=== PATIENT | female | born 1980 | race Caucasian/White ===

== ENCOUNTER → 2017-05-28 | Outpatient (CLI) | payer OTHER ==
--- NOTE | 2017-05-29 07:18 | US ---
EXAMINATION TYPE: US thyroid st tissue head/neck DATE OF EXAM: 05/28/2017 COMPARISON: US 01/04/2015 CLINICAL HISTORY: Thyromegaly E01.0. Patient complains of skin thickness at midline neck. GLAND SIZE: Right Lobe: 4.4 x 1.6 x 1.0 cm Overall Parenchyma: homogenous Left Lobe: 5.1 x 1.6 x 1.3 cm Overall Parenchyma: homogeneous Isthmus Thickness: 0.3 cm NODULES RIGHT: # of nodules measured on right: 1 1. 0.4 X 0.4 x 0.3 cm hypoechoic cystic nodule at the lower pole with well-defined margins. This n odule is wider than tall and shows no intranodular vascularity. Prior size: none previously seen LEFT: # of nodules measured on left: 0 ISTHMUS: # of nodules measured in the isthmus: 0 Bilateral neck scanned, no evidence of lymphadenopathy. IMPRESSION: Single subcentimeter right thyroid nodule measuring only 4 mm and of low suspicion. Prominent size of the thyroid remains as seen on the prior exam. No sonographic findings to correspond to the patient' s skin thickening at the midline.
== END ==
LOC: RADUSWWP 16:11
PROVIDERS: ATTEND Internal Medicine
DX: E04.1 Nontoxic single thyroid nodule (principal)
CPT/HCPCS: 76536

== ENCOUNTER → 2018-07-18 | Outpatient (CLI) | payer OTHER ==
--- NOTE | 2018-07-18 13:27 | US ---
EXAMINATION TYPE: US thyroid st tissue head/neck DATE OF EXAM: 07/18/2018 COMPARISON: NONE CLINICAL HISTORY: E04.1 Thyroid Nodule. follow up exam GLAND SIZE: Right Lobe: 4.6 x 1.3 x 1.4 cm Overall Parenchyma: homogenous Left Lobe: 6.4 x 1.3 x 1.6 cm Overall Parenchyma: homogeneous Isthmus Thickness: 0.3 cm NODULES RIGHT: # of nodules measured on right: 1 1. 0.5 X 0.3 x 0.4 cm cystic nodule at the lower pole with well-defined margins. This nodule is wi meredith than tall and shows no intranodular vascularity. Prior size: 0.4 x 0.4 x 0.3 cm LEFT: # of nodules measured on left: 0 ISTHMUS: # of nodules measured in the isthmus: 0 Bilateral neck scanned, no evidence of lymphadenopathy. IMPRESSION: 1. Stable Subcentimeter nodule right lobe thyroid.
[2018-07-18 14:45] LABS: T4, Free (Free Thyroxine) 0.96 ng/dL (0.78-2.19)
[2018-07-18 20:33] LABS: Hemoglobin A1C 5.3 % (4.0-6.0)
== END | disposition home or self-care (01) ==
LOC: RADUSWWP 13:00
PROVIDERS: ATTEND Internal Medicine Endocrinology, Diabetes & Metabolism
DX: E04.1 Nontoxic single thyroid nodule (principal); E16.2 Hypoglycemia, unspecified; Z83.3 Family history of diabetes mellitus
CPT/HCPCS: 76536; 83036; 84439; 84443; 84480

== ENCOUNTER → 2019-02-06 | Outpatient (CLI) | payer OTHER ==
--- NOTE | 2019-02-06 12:17 | MM ---
Reason for exam: screening (asymptomatic). History: Took hormonal contraceptives beginning at age 16. Physical Findings: Nurse did not find any significant physical abnormalities on exam. MG 3D Screening Mammo W/Cad Bilateral CC and MLO view(s) were taken. There are scattered fibroglandular densities. Finding: There are skin calcifications in the right breast. There is no discrete abnormality. These results were verbally communicated with the patient and result sheet given to the patient on 02/06/19. ASSESSMENT: Benign, BI-RAD 2 RECOMMENDATION: Routine screening mammogram of both breasts at age 41.
== END | disposition home or self-care (01) ==
LOC: RADMAMWWP 11:05
PROVIDERS: ATTEND Obstetrics & Gynecology Obstetrics
DX: Z12.31 Encounter for screening mammogram for malignant neoplasm of breast (principal)
CPT/HCPCS: 77063; 77067

== ENCOUNTER → 2019-05-01 | Outpatient (CLI) | payer OTHER ==
--- NOTE | 2019-05-01 11:34 | XR ---
EXAMINATION TYPE: XR lumbosacral spine min 4V DATE OF EXAM: 05/01/2019 CLINICAL HISTORY: Right-sided low back pain after strain injury TECHNIQUE: Frontal, lateral, and oblique images of the lumbar spine are obtained. COMPARISON: None FINDINGS: There are 5 lumbar type vertebral bodies identified. The lumbar spine shows satisfactory alignment without evidence of acute fracture or dislocation. Vertebral body heights and disk space he ights are within normal limits. The oblique images appear within normal limits. The overlying soft tissue appears unremarkable. Mild degenerative changes at the lower lumbar spine are displayed is fa cet arthropathy and intervertebral disc space narrowing at L5-S1. IMPRESSION: No acute fracture or dislocation is seen in the lumbar spine. 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
== END | disposition home or self-care (01) ==
LOC: RADXRYALE 10:52
PROVIDERS: ATTEND Internal Medicine
DX: M51.36 Other intervertebral disc degeneration, lumbar region (principal); M51.37 Other intervertebral disc degeneration, lumbosacral region
CPT/HCPCS: 72110

== ENCOUNTER 2019-05-02 14:41 | Emergency (ER) | payer OTHER ==
[2019-05-02 15:16] VITALS: BP 128/78; PULSE 83; RESP 16; TEMP 99
[2019-05-02] MEDS ORDERED: KETOROLAC 60 MG/2 ML VIAL IM STA (15:33)
[2019-05-02] MEDS ORDERED: predniSONE 50 MG TAB PO STA (15:33)
[2019-05-02] MEDS ORDERED: CYCLOBENZAPRINE 10MG STARTER 3 TAB BTL PO STA (15:33)
--- NOTE | 2019-05-02 15:59 | ED ---
General Adult HPI - General Chief complaint: Neck Pain/Injury Stated complaint: Back injury Time Seen by Provider: 05/02/19 15:18 Source: patient, RN notes reviewed, old records reviewed Mode of arrival: wheelchair Limitations: physical limitation - History of Present Illness Initial comments: 38-year-old female patient presents to ED for chief complaint of lumbar back strain. Patient reports that she was exercising at the gym, doing seated Consuelo, back exercises, the next day she reports that she has number spine tightness. Patient also is that she has some waxing and waning paresthesias. Denies any loss of bowel or bladder control. Denies new saddle anesthesia. Denies any lower extremity weakness. Denies any recent falls or trauma. Denies that she can be . Denies other complaints. Systemic: Pt denies fatigue, fever/chills, rash. Pt denies weakness, night sweats, weight loss. Neuro: Pt denies headache, visual disturbances, syncope or pre-syncope. HEENT: Pt denies ocular discharge or irritation, otalgia, rhinorrhea, pharyngitis or notable lymphadenopathy. Cardiopulmonary: Pt denies chest pain, SOB, heart palpitations, dyspnea on exertion. Abdominal/GI: Pt denies abdominal pain, n/v/d. : Pt denies dysuria, burning w/ urination, frequency/urgency. Denies new onset urinary or bowel incontinence. MSK: Pt denies myalgia, loss of strength or function in extremities. Neuro: Pt denies new onset weakness, paresthesias. - Related Data Home Medications Medication Instructions Recorded Confirmed Albuterol Inhaler [Ventolin Hfa 1 - 2 puff INHALATION Q6HR PRN 08/17/15 08/17/15 Inhaler] Albuterol Nebulized [Ventolin 2.5 mg INHALATION Q4H 08/17/15 08/17/15 Nebulized] Loratadine [Claritin] 10 mg PO DAILY 08/17/15 08/17/15 Norgestimate-Ethinyl Estradiol 1 tab PO DAILY 08/17/15 08/17/15 [Ortho Tri-Cyclen 28 Tablet] busPIRone HCL [Buspar] 15 mg PO DAILY 08/17/15 08/17/15 Previous Rx's Medication Instructions Recorded Cyclobenzaprine [Flexeril] 1 - 2 tab PO TID PRN #20 tablet 05/02/19 predniSONE 50 mg PO DAILY #4 tab 05/02/19 Allergies Allergy/AdvReac Type Severity Reaction Status Date / Time No Known Allergies Allergy Verified 05/02/19 15:16 Review of Systems ROS Statement: Those systems with pertinent positive or pertinent negative responses have been documented in the HPI. ROS Other: All systems not noted in ROS Statement are negative. Past Medical History Past Medical History: Asthma History of Any Multi-Drug Resistant Organisms: None Reported Past Surgical History: Adenoidectomy, Section, Tonsillectomy Past Psychological History: Anxiety Smoking Status: Never smoker Past Alcohol Use History: None Reported Past Drug Use History: None Reported General Exam - General Exam Comments Initial Comments: Constitutional: NAD, AOX3, Pt has pleasant affect. HEENT: NC/AT, trachea midline, neck supple, no lymphadenopathy. Posterior pharynx non erythematous, without exudates. External ears appear normal, without discharge. Mucous membranes moist. Eyes PERRLA, EOM intact. There is no scleral icterus. No pallor noted. Cardiopulmonary: RRR, no murmurs, rubs or gallops, no JVD noted. Lungs CTAB in anterior and posterior miguel. No peripheral edema. Abdominal exam: Abdomen soft and non-distended. Abdomen non-tender to palpation in all 4 quadrants. Bowel sounds active in LLQ. No hepatosplenomegaly. No ecchymosis Neuro: CN II-XII intact. No nuchal rigidity. No raccon eyes, no portillo sign, no hemotympanum. No cervical spinal tenderness. MSK: 5 out of 5 strength psoas quadriceps muscles. Heel to toe walking intact. Sensation intact lower extremity is. Distal pulses intact and equal. Right straight leg raise positive. Left straight leg raise negative. No posterior calf tenderness bilaterally, homans sign negative bilaterally. Posterior tibialis and radial pulse +2 bilaterally. Sensation intact in upper and lower ex tremities. Full active ROM in upper and lower extremities, 5/5 stregnth. Limitations: physical limitation Course Vital Signs 05/02/19 15:14 Temperature 99.0 F Pulse Rate 83 Respiratory 16 Rate Blood Pressure 128/78 O2 Sat by Pulse 100 Oximetry Medical Decision Making - Medical Decision Making 38-year-old female patient presents to ED for chief complaint of low back strain after exercising. Denies any red flag symptoms. Patient will signs stable, afebrile. Physical exam consistent with low back strain with radiculopathy. Outpatient plain films displayed multilevel degenerative changes. Patient will be treated with muscle relaxers, steroids, anti-inflammatories. Patient to follow up with primary care provider Saturday. Patient returned here patient worsens. Case discussed with Dr. Alcantara. Disposition Clinical Impression: Lumbar back sprain Disposition: HOME SELF-CARE Condition: Stable Instructions (If sedation given, give patient instructions): Low Back Strain (ED) Additional Instructions: Patient to adhere to previously discussed treatment plan and will take medication(s) as directed. Patient to follow up with PCP in 1-2 days. Patient to return to ED if symptoms do not improve. Take medications as directed. Follow up with primary care provider Saturday. Return to ER if condition worsens. Prescriptions: Cyclobenzaprine [Flexeril] 1 - 2 tab PO TID PRN #20 tablet PRN Reason: muscle spasm predniSONE 50 mg PO DAILY #4 tab Is patient prescribed a controlled substance at d/c from ED?: No Referrals: Leticia Cheema MD [Primary Care Provider] - 1-2 days
== END 2019-05-02 16:19 | disposition home or self-care (01) ==
LOC: EC 14:41
DX: S33.5XXA Sprain of ligaments of lumbar spine, initial encounter (principal); J45.909 Unspecified asthma, uncomplicated; F41.9 Anxiety disorder, unspecified; Z79.899 Other long term (current) drug therapy; X58.XXXA Exposure to other specified factors, initial encounter; Y92.39 Other specified sports and athletic area as the place of occurrence of the external cause
CPT/HCPCS: 99283; 96372; J1885; J7512

== ENCOUNTER → 2019-08-31 | Outpatient (CLI) | payer OTHER ==
[2019-08-31 23:17] LABS: T4, Free (Free Thyroxine) 1.36 ng/dL (0.78-2.19)
--- NOTE | 2019-09-01 08:25 | US ---
EXAMINATION TYPE: US thyroid st tissue head/neck DATE OF EXAM: 08/31/2019 COMPARISON: US CLINICAL HISTORY: E04.1 Nontoxic single thyroid nodule. Nontoxic single thyroid nodule. GLAND SIZE: Right Lobe: 5.3 x 1.7 x 1.6 cm Overall Parenchyma: homogenous Left Lobe: 5.5 x 1.6 x 1.4 cm Overall Parenchyma: homogeneous Isthmus Thickness: 0.27 cm NODULES RIGHT: # of nodules measured on right: 1 1. 0.6 X 0.4 x 0.3 cm complex nodule at the lower pole with well-defined margins. This nodule is w ider than tall and shows no intranodular vascularity. Nodule appears to be mostly anechoic with small hyperechoic component. Prior size: 0.5 x 0.3 x 0.4 cm LEFT: # of nodules measured on left: 1 1. 0.4 X 0.3 x 0.3 cm complex nodule at the lower pole with poorly defined margins. This nodule is as wide as it is tall and shows no intranodular vascularity. Prior size: no prior. ISTHMUS: # of nodules measured in the isthmus: 0 Bilateral neck scanned, no evidence of lymphadenopathy. IMPRESSION: 1. Thyroidomegaly. 2. Thyroid nodularity as discussed above is nonspecific.
== END | disposition home or self-care (01) ==
LOC: RADUSMAIN 16:52
PROVIDERS: ATTEND Internal Medicine Endocrinology, Diabetes & Metabolism
DX: E04.1 Nontoxic single thyroid nodule (principal)
CPT/HCPCS: 76536; 84439; 84443

== ENCOUNTER 2022-04-10 11:02 | Emergency (ER) | payer OTHER ==
--- NOTE | 2022-04-10 13:46 | ED ---
General Adult HPI - General Chief complaint: Abdominal Pain Stated complaint: abd pain Time Seen by Provider: 04/10/22 13:30 Source: patient Mode of arrival: ambulatory Limitations: no limitations - History of Present Illness Initial comments: Dictation was produced using [employer] dictation software. please excuse any grammatical, word or spelling errors. Chief Complaint: 41-year-old female presents to the emergency department for abd ominal pain History of Present Illness: 41-year-old female she has past medical history of multiple C-sections. She states over the last week she's been having worsening abdominal pain she states it's in the midline infraumbilical area slightly to the right. Patient denies any fever or constitutional symptoms. No diarrhea. No vomiting but she has had some bouts of nausea. Patient has any history of appendectomy. The ROS documented in this emergency department record has been reviewed and confirmed by me. Those systems with pertinent positive or negative responses have been documented in the HPI. All other systems are other negative and/or noncontributory. PHYSICAL EXAM: General Impression: Alert and oriented x3, not in acute distress HEENT: Normocephalic atraumatic, extra-ocular movements intact, pupils equal and reactive to light bilaterally, mucous membranes moist. Cardiovascular: Heart regular rate and rhythm Chest: Able to complete full sentences, no retractions, no tachypnea Abdomen: abdomen soft, tenderness to palpation at McBurney's point, non- distended, no organomegaly Musculoskeletal: Pulses present and equal in all extremities, no peripheral edema Motor: no focal deficits noted Neurological: CN II-XII grossly intact, no focal motor or sensory deficits noted Skin: Intact with no visualized rashes Psych: Normal affect and mood ED course: 41-year-old female presents emergency Department with infraumbilical abdominal pain. Vital Signs upon arrival are within acceptable limits. Lavatory evaluation obtained. CBC, metabolic panel is unremarkable. Urinalysis is negative. Computed tomography scan of abdomen and pelvis shows no acute processes. Patient reevaluated bedside found to be stable medical condition. There is appear to be a follicular cyst on the left ovary. At this point is unclear what is causing patient's symptoms. She does not however have any high- risk features. She is well-appearing at bedside and amenable for discharge. She given by mouth analgesics discharge. - Related Data Home Medications Medication Instructions Recorded Confirmed Albuterol Inhaler [Ventolin Hfa 2 puff INHALATION RT-Q6H PRN 08/17/15 04/10/22 Inhaler] Albuterol Nebulized [Ventolin 2.5 mg INHALATION RT-TID PRN 08/17/15 04/10/22 Nebulized] Loratadine [Claritin] 10 mg PO W/LUNCH 08/17/15 04/10/22 busPIRone HCL [Buspar] 15 mg PO DAILY PRN 08/17/15 04/10/22 Acetaminophen Tab [Tylenol Tab] 1,000 mg PO Q6HR PRN 04/10/22 04/10/22 Ascorbic Acid [Vitamin C] 1,500 mg PO DAILY 04/10/22 04/10/22 Aspirin EC [Ecotrin Low Dose] 81 mg PO HS 04/10/22 04/10/22 Cholecalciferol [Vitamin D3 (25 50 mcg PO BID 04/10/22 04/10/22 Mcg = 1000 Iu)] EPINEPHrine (Auto Inject) [Epipen] 0.3 mg IM ONCE PRN 04/10/22 04/10/22 Elderberry Gummy 1 cap PO HS 04/10/22 04/10/22 Fluticasone Nasal [place] [Flonase 1 spray EA NOSTRIL DAILY PRN 04/10/22 04/10/22 Nasal [place]] Fluticasone Propionate 110 Mcg 1 puff INHALATION RT-BID PRN 04/10/22 04/10/22 [Flovent 110 Mcg Inhaler] Hydrocortisone Cream 1 applic TOPICAL BID PRN 04/10/22 04/10/22 [Hydrocortisone 2.5% Cream] Ibuprofen [Motrin Ib] 800 mg PO Q8H PRN 04/10/22 04/10/22 Montelukast [Singulair] 10 mg PO HS 04/10/22 04/10/22 Multivit with Calcium,Iron,Min 1 tab PO DAILY 04/10/22 04/10/22 [Women's Multivitamin] Omeprazole [PriLOSEC] 20 mg PO HS 04/10/22 04/10/22 Triamcinolone 0.1% Cream [Kenalog 1 applicatio TOPICAL BID PRN 04/10/22 04/10/22 0.1% Cream] Zinc Gluconate [Zinc] 50 mg PO DAILY 04/10/22 04/10/22 diphenhydrAMINE HCL [Benadryl] 25 mg PO TID PRN 04/10/22 04/10/22 lisinopriL [Zestril] 5 mg PO DAILY 04/10/22 04/10/22 Previous Rx's Medication Instructions Recorded HYDROcodone/APAP 5-325MG [[place] 1 tab PO Q6HR PRN 3 Days #12 tab 04/10/22 5-325] Allergies Allergy/AdvReac Type Severity Reaction Status Date / Time cephalexin [From Keflex] Allergy Rash/Hives Verified 04/10/22 15:46 Review of Systems ROS Statement: Those systems with pertinent positive or pertinent negative responses have been documented in the HPI. ROS Other: All systems not noted in ROS Statement are negative. Past Medical History Past Medical History: Asthma History of Any Multi-Drug Resistant Organisms: None Reported Past Surgical History: Adenoidectomy, Section, Tonsillectomy Past Psychological History: Anxiety Smoking Status: Never smoker Past Alcohol Use History: None Reported Past Drug Use History: None Reported General Exam Limitations: no limitations Course Vital Signs 04/10/22 04/10/22 11:37 15:13 Temperature 96.8 F L Pulse Rate 112 H 98 Respiratory 22 18 Rate Blood Pressure 161/77 124/84 O2 Sat by Pulse 96 98 Oximetry Medical Decision Making - Lab Data Result diagrams: 04/10/22 13:49 04/10/22 13:49 Lab Results 04/10/22 04/10/22 04/10/22 Range/Units 13:49 13:49 13:49 WBC 10.3 (3.8-10.6) k/uL RBC 4.53 (3.80-5.40) m/uL Hgb 14.0 (11.4-16.0) gm/dL Hct 42.4 (34.0-46.0) % MCV 93.6 (80.0-100.0) fL MCH 30.9 (25.0-35.0) pg MCHC 33.0 (31.0-37.0) g/dL RDW 11.9 (11.5-15.5) % Plt Count 230 (150-450) k/uL MPV 7.9 Neutrophils % 75 % Lymphocytes % 19 % Monocytes % 3 % Eosinophils % 1 % Basophils % 1 % Neutrophils # 7.7 (1.3-7.7) k/uL Lymphocytes # 2.0 (1.0-4.8) k/uL Monocytes # 0.3 (0-1.0) k/uL Eosinophils # 0.1 (0-0.7) k/uL Basophils # 0.1 (0-0.2) k/uL Sodium 137 (137-145) mmol/L Potassium 3.7 (3.5-5.1) mmol/L Chloride 101 (98-107) mmol/L Carbon Dioxide 25 (22-30) mmol/L Anion Gap 11 mmol/L BUN 10 (7-17) mg/dL Creatinine 0.50 L (0.52-1.04) mg/dL Est GFR (CKD-EPI)AfAm >90 (>60 ml/min/1.73 sqM) Est GFR (CKD-EPI)NonAf >90 (>60 ml/min/1.73 sqM) Glucose 94 (74-99) mg/dL Plasma Lactic Acid Isael 0.6 L (0.7-2.0) mmol/L Calcium 9.1 (8.4-10.2) mg/dL Magnesium 1.8 (1.6-2.3) mg/dL Total Bilirubin 0.4 (0.2-1.3) mg/dL AST 23 (14-36) U/L ALT 17 (4-34) U/L Alkaline Phosphatase 69 (38-126) U/L Total Protein 7.5 (6.3-8.2) g/dL Albumin 4.5 (3.5-5.0) g/dL Lipase 94 (23-300) U/L Urine Color Urine Appearance (Clear) Urine pH (5.0-8.0) Ur Specific [place] (1.001-1.035) Urine Protein (Negative) Urine Glucose (UA) (Negative) Urine Ketones (Negative) Urine Blood (Negative) Urine Nitrite (Negative) Urine Bilirubin (Negative) Urine Urobilinogen (<2.0) mg/dL Ur Leukocyte Esterase (Negative) 04/10/22 Range/Units 15:18 WBC (3.8-10.6) k/uL RBC (3.80-5.40) m/uL Hgb (11.4-16.0) gm/dL Hct (34.0-46.0) % MCV (80.0-100.0) fL MCH (25.0-35.0) pg MCHC (31.0-37.0) g/dL RDW (11.5-15.5) % Plt Count (150-450) k/uL MPV Neutrophils % % Lymphocytes % % Monocytes % % Eosinophils % % Basophils % % Neutrophils # (1.3-7.7) k/uL Lymphocytes # (1.0-4.8) k/uL Monocytes # (0-1.0) k/uL Eosinophils # (0-0.7) k/uL Basophils # (0-0.2) k/uL Sodium (137-145) mmol/L Potassium (3.5-5.1) mmol/L Chloride (98-107) mmol/L Carbon Dioxide (22-30) mmol/L Anion Gap mmol/L BUN (7-17) mg/dL Creatinine (0.52-1.04) mg/dL Est GFR (CKD-EPI)AfAm (>60 ml/min/1.73 sqM) Est GFR (CKD-EPI)NonAf (>60 ml/min/1.73 sqM) Glucose (74-99) mg/dL Plasma Lactic Acid Isael (0.7-2.0) mmol/L Calcium (8.4-10.2) mg/dL Magnesium (1.6-2.3) mg/dL Total Bilirubin (0.2-1.3) mg/dL AST (14-36) U/L ALT (4-34) U/L Alkaline Phosphatase (38-126) U/L Total Protein (6.3-8.2) g/dL Albumin (3.5-5.0) g/dL Lipase (23-300) U/L Urine Color Light Yellow Urine Appearance Clear (Clear) Urine pH 7.5 (5.0-8.0) Ur Specific [place] 1.020 (1.001-1.035) Urine Protein Negative (Negative) Urine Glucose (UA) Negative (Negative) Urine Ketones Negative (Negative) Urine Blood Negative (Negative) Urine Nitrite Negative (Negative) Urine Bilirubin Negative (Negative) Urine Urobilinogen <2.0 (<2.0) mg/dL Ur Leukocyte Esterase Negative (Negative) Disposition Clinical Impression: Abdominal pain Disposition: HOME SELF-CARE Condition: Good Instructions (If sedation given, give patient instructions): Abdominal Pain (ED) Prescriptions: HYDROcodone/APAP 5-325MG [[place] 5-325] 1 tab PO Q6HR PRN 3 Days #12 tab PRN Reason: Severe Pain Is patient prescribed a controlled substance at d/c from ED?: No Referrals: Sulaiman Darden MD [STAFF PHYSICIAN] - 1-2 days Time of Disposition: 16:35
[2022-04-10 13:58] LABS: Basophils # (A) 0.1 k/uL (0-0.2); Basophils % (A) 1 %; Eosinophils # (A) 0.1 k/uL (0-0.7); Eosinophils % (A) 1 %; HCT 42.4 % (34.0-46.0); Lymphocytes % (A) 19 %; MCH 30.9 pg (25.0-35.0); MCV 93.6 fL (80.0-100.0); Mean Platelet Volume 7.9; Monocytes # (A) 0.3 k/uL (0-1.0); Monocytes % (A) 3 %; Neutrophils # (A) 7.7 k/uL (1.3-7.7); Neutrophils % (A) 75 %; Platelet Count 230 k/uL (150-450); RBC 4.53 m/uL (3.80-5.40); RDW 11.9 % (11.5-15.5); WBC 10.3 k/uL (3.8-10.6)
[2022-04-10 14:10] LABS: ALT 17 U/L (4-34); AST 23 U/L (14-36); African American GFR (CKD) >90 (>60 ml/min/1.73 sqM); Albumin 4.5 g/dL (3.5-5.0); Alkaline Phosphatase 69 U/L (38-126); Anion Gap 11 mmol/L; Blood Urea Nitrogen 10 mg/dL (7-17); Calcium 9.1 mg/dL (8.4-10.2); Carbon Dioxide 25 mmol/L (22-30); Chloride 101 mmol/L (98-107); Glucose 94 mg/dL (74-99); Lipase 94 U/L (23-300); Magnesium 1.8 mg/dL (1.6-2.3); Non-African American GFR(CKD) >90 (>60 ml/min/1.73 sqM); Potassium 3.7 mmol/L (3.5-5.1); Sodium 137 mmol/L (137-145); Total Bilirubin 0.4 mg/dL (0.2-1.3); Total Protein 7.5 g/dL (6.3-8.2)
[2022-04-10] MEDS ORDERED: KETOROLAC 15 MG/ML 1 ML VIAL IVP STA (14:40)
--- NOTE | 2022-04-10 15:07 | CT ---
EXAMINATION TYPE: CT abdomen pelvis w con CT DLP: 1753.3 mGycm, Automated exposure control for dose reduction was used. DATE OF EXAM: 04/10/2022 2:56 PM COMPARISON: None. CLINICAL INDICATION:Female, 41 years old with history of lower abdominal pain, suspect appendicitis; RLQ pain TECHNIQUE: Standard CT of the abdomen and pelvis following the administration of 100 cc of Isovue 3 00 IV contrast material. Coronal and sagittal reformats were performed. FINDINGS: LOWER CHEST: Unremarkable ABDOMEN LIVER: Unremarkable GALLBLADDER AND BILE DUCTS: Unremarkable. PANCREAS: Unremarkable. SPLEEN: Unremarkable. ADRENAL GLANDS: Unremarkable. KIDNEYS AND URETERS: No evidence of hydronephrosis or renal calculus. The kidneys enhance symmetrical ly without suspicious focal lesion. PELVIS BLADDER: Unremarkable REPRODUCTIVE: Anteverted uterus. Left ovarian 3.3 cm cystic lesion likely representing a follicular c yst. ABDOMEN & PELVIS STOMACH AND BOWEL: Stomach and duodenum are unremarkable. No focal wall thickening or surrounding inf lammatory changes. The appendix is within normal limits. No evidence of bowel obstruction. PERITONEUM: No evidence of pneumoperitoneum or free fluid. VASCULATURE: No evidence of aortic aneurysm. MUSCULOSKELETAL: No acute osseous abnormalities LYMPH NODES: No gross evidence for lymphadenopathy. SOFT TISSUE/ABDOMINAL WALL: Unremarkable IMPRESSION: No acute abdominal/pelvic process.
[2022-04-10 15:15] VITALS: RESP 18
[2022-04-10 15:30] LABS: Appearance,Urine Clear (Clear); Bilirubin,Urine Negative (Negative); Blood,Urine Negative (Negative); Color,Urine Light Yellow; Glucose,Urine (UA) Negative (Negative); Ketones,Urine Negative (Negative); Leukocyte Esterase,Urine Negative (Negative); Nitrite,Urine Negative (Negative); PH, Urine 7.5 (5.0-8.0); Protein,Urine Negative (Negative); Urobilinogen,Urine <2.0 mg/dL (<2.0)
[2022-04-10 16:55] VITALS: BP 129/95; PULSE 84; TEMP 98.2
== END 2022-04-10 16:55 | disposition home or self-care (01) ==
LOC: EC 11:02
DX: R10.9 Unspecified abdominal pain (principal); J45.909 Unspecified asthma, uncomplicated; F41.9 Anxiety disorder, unspecified; Z88.1 Allergy status to other antibiotic agents; Z79.51 Long term (current) use of inhaled steroids; Z79.82 Long term (current) use of aspirin; Z79.899 Other long term (current) drug therapy
CPT/HCPCS: 36415; 80053; 83605; 83690; 83735; 85025; 81003; 74177; 99284; 96374; J1885; Q9967

== ENCOUNTER → 2022-04-24 | Outpatient (CLI) | payer OTHER ==
--- NOTE | 2022-04-24 08:55 | US ---
EXAMINATION TYPE: US thyroid st tissue head/neck DATE OF EXAM: 04/24/2022 COMPARISON: US 2019 CLINICAL HISTORY: E04.1 Thyroid nodule. GLAND SIZE: Right Lobe: 5.4 x 1.3 x 1.4 cm Overall Parenchyma: homogenous Left Lobe: 5.8 x 1.6 x 1.6 cm Overall Parenchyma: homogeneous Isthmus Thickness: 0.3 cm NODULES RIGHT: # of nodules measured on right: 0 LEFT: # of nodules measured on left: 0 ISTHMUS: # of nodules measured in the isthmus: 0 Bilateral neck scanned, no evidence of lymphadenopathy. Homogeneous thyroid measures upper limits of normal in size. No discrete nodule measured on current s tudy. IMPRESSION: As above. No suspicious greater than 5 mm nodules noted.
--- NOTE | 2022-04-25 19:16 | MM ---
Reason for Exam: Screening (asymptomatic). Last mammogram was performed 3 year(s) and 3 month(s) ago. Patient History: Menarche at age 17. First Full-Term at age 27. Hormonal Contraceptives, from age 16 until age 36. Last menstrual period: 04/23/2022 Risk Values: Trisha 5 year model risk: 0.6%. NCI Lifetime model risk: 10.2%. Prior Study Comparison: 02/06/2019 Bilateral Screening Mammogram, [facility]. Tissue Density: There are scattered fibroglandular densities. Findings: Analyzed By CAD. Chronic Nodule is in the left breast. No suspicious groups of microcalcifications, spiculated or lobular masses, architectural distortion or other secondary signs of malignancy are mammographically apparent. Overall Assessment: Benign, BI-RAD 2 Management: Screening Mammogram of both breasts in 1 year. A negative mammogram report should not preclude additional follow up of suspicious palpable abnormalities. Patient should continue monthly self breast exam. A clinical breast exam by your physician is recommended on an annual basis and results should be correlated with mammographic findings. Electronically signed and approved by: Francisco Jaffe D.O. Radiologis
== END | disposition home or self-care (01) ==
LOC: RADMAMWWP 07:59
PROVIDERS: ATTEND Internal Medicine
DX: Z12.31 Encounter for screening mammogram for malignant neoplasm of breast (principal); E04.1 Nontoxic single thyroid nodule
CPT/HCPCS: 76536; 77063; 77067

== ENCOUNTER 2022-07-31 06:14 | Day surgery (SDC) | payer OTHER ==
[2022-07-26 16:13] VITALS: BMI 44.6
[2022-07-31] MEDS ORDERED: LACTATED RINGERS 1,000 ML IV SCH (06:16)
[2022-07-31] MEDS ORDERED: LIDOCAINE 1% (10MG/ML) FOR IV START INTRADERMA PRN (06:16)
[2022-07-31 06:50] VITALS: TEMP 97.5
[2022-07-31 07:01] LABS: Glucose,Whole Blood 92 mg/dL (70-110)
[2022-07-31] MEDS ORDERED: MIDAZOLAM 2 MG/2 ML VIAL ONE (07:28)
[2022-07-31] MEDS ORDERED: PROPOFOL 10 MG/ML 20 ML VIAL IV ONE (07:28)
[2022-07-31] MEDS ORDERED: LIDOCAINE 2% INJ 20 MG/ML (2 ML VIAL) ONE (07:28)
[2022-07-31] MEDS ORDERED: fentaNYL (PF) 50 MCG/ML 2 ML AMP ONE (07:28)
--- NOTE | 2022-07-31 07:54 | P.PCN ---
Date of Procedure: 07/31/22 Procedure(s) Performed: Brief history: Patient is a pleasant 42-year-old white female scheduled for an elective upper endoscopy as well as colonoscopy as a part of evaluation of positive serology for celiac disease and screening for colon cancer. Her father was diagnosed with colon cancer at age 48 and paternal uncle Procedure performed: Esophagogastroduodenoscopy with biopsy Colonoscopy Preoperative diagnosis: Positive serology for celiac disease Screening for colon cancer and family history of colon cancer Anesthesia: [facility] Procedure: After informed consent was obtained from the patient was brought into the endoscopy unit and IV sedation was administered by anesthesia under continuous monitoring. Initially upper endoscopy was done. The Olympus GF 160 video endoscope was inserted inserted into the mouth and esophagus intubated without any difficulty and was gradually advanced into the stomach and duodenum and carefully examined. The bulb and second part of the duodenum appeared normal. Multiple biopsies were done from the duodenum to rule out celiac disease. The scope was then withdrawn into the stomach adequately insufflated with air and upon careful examination the antrum had mild gastritis and biopsies were done from this area. Mucosa of the body, cardia and fundus appeared normal. The scope was then withdrawn into the esophagus. The GE junction was located at 40 cm to the incisors. It appeared regular with no erythema erosions or ulcerations. Rest of the esophagus appeared normal. Patient tolerated the procedure well. At this time the patient continued to remain sedation. Initial digital rectal examination was normal. Olympus CF 160 video colonoscope was then inserted into the rectum and gradually advanced to the cecum without any difficulty. Careful examination was performed as the scope was gradually being withdrawn. The prep was excellent. The cecum, ascending colon, transverse colon, descending colon, sigmoid colon and rectum appeared normal. Retroflexion was performed in the rectum and no lesions were noted. Patient tolerated the procedure well. Impression: 1. Upper endoscopy revealed mild antral gastritis but no evidence of esophagitis or peptic ulcer disease 2. Lastly was within normal limits with no evidence of colitis or colorectal neoplasia Recommendations: Findings of this examination were discussed with the patient as well as her family. She was advised to follow with the biopsy results. She will be seen in office in 2 weeks. Recommend repeat colonoscopy in 5 years because of the strong family history of colon cancer.
[2022-07-31 08:18] VITALS: BP 112/73; PULSE 84; RESP 20
== END 2022-07-31 08:37 | disposition home or self-care (01) ==
LOC: ORWHC2ENDO 06:14
PROVIDERS: ATTEND Internal Medicine Gastroenterology
DX: Z12.11 Encounter for screening for malignant neoplasm of colon (principal); Z80.0 Family history of malignant neoplasm of digestive organs; K29.50 Unspecified chronic gastritis without bleeding; K90.0 Celiac disease; D72.820 Lymphocytosis (symptomatic); Z88.1 Allergy status to other antibiotic agents; Z91.030 Bee allergy status
CPT/HCPCS: 81025; 88305; 43239; 45378; J2250; J3010; J2704; J2001; G0121

== ENCOUNTER → 2023-08-05 | Outpatient (CLI) | payer OTHER ==
[2023-08-05 11:29] LABS: ALT 15 U/L (8-44); AST 19 U/L (13-35); Chol/HDL Ratio 2.52 Ratio; LDL Cholesterol,Calculated 69.1 mg/dL (0.0-131.0); T4, Free (Free Thyroxine) 1.15 ng/dL (0.80-1.80); VLDL Calculation 11.22 mg/dL (5.00-40.00)
== END | disposition home or self-care (01) ==
LOC: LABWHC1 07:07
PROVIDERS: ATTEND Internal Medicine Interventional Cardiology
DX: E78.2 Mixed hyperlipidemia (principal)
CPT/HCPCS: 36415; 80061; 84439; 84443; 84450; 84460; 84481

== ENCOUNTER → 2023-09-14 | Outpatient (CLI) | payer BC ==
[2023-09-14 14:10] LABS: Rheumatoid Factor, Qnt <15 IU/mL (0-15)
[2023-09-16 10:13] LABS: HLA B27 NEGATIVE
[2023-09-16 12:01] LABS: Angiotensin-1 Converting Enz. 9 U/L (8-52)
[2023-09-16 14:49] LABS: C-ANCA <1:20 Titer (<1:20)
[2023-09-21 01:39] LABS: Lysozyme, Serum or Body Fluid 5.1 mcg/mL (5.0-11.0)
== END | disposition home or self-care (01) ==
LOC: LABWHC1 08:14
PROVIDERS: ATTEND Optometrist
DX: H10.45 Other chronic allergic conjunctivitis (principal)
CPT/HCPCS: 36415; 82164; 85549; 86038; 86255; 86431; 86618; 86812

== ENCOUNTER → 2023-11-23 | Outpatient (CLI) | payer BC ==
[2023-11-23 22:58] LABS: Basophils # (A) 0.05 X 10*3/uL (0.00-0.10); Basophils % (A) 0.9 %; Eosinophils # (A) 0.11 X 10*3/uL (0.04-0.35); Eosinophils % (A) 1.9 %; HCT 43.1 % (37.2-46.3); HGB 14.3 g/dL (12.0-15.0); Lymphocytes # (A) 2.39 X 10*3/uL (0.90-5.00); Lymphocytes % (A) 41.9 %; MCH 30.8 pg (27.0-32.0); MCHC 33.2 g/dL (32.0-37.0); MCV 92.7 FL (80.0-97.0); Mean Platelet Volume 11.8 FL (9.5-12.2); Monocytes # (A) 0.47 X 10*3/uL (0.20-1.00); Monocytes % (A) 8.2 %; NRBC Per 100 WBC 0 X 10*3/uL (0.00-0.01); Neutrophils # (A) 2.66 X 10*3/uL (1.80-7.70); Neutrophils % (A) 46.7 %; Platelet Count 210 X 10*3/uL (140-440); RBC 4.65 X 10*6/uL (4.10-5.20); RDW 12.5 % (11.5-14.5)
[2023-11-23 23:36] LABS: ALT 16 U/L (8-44); AST 20 U/L (13-35); Albumin 4.5 g/dL (3.8-4.9); Albumin/Globulin Ratio 1.73 Ratio (1.60-3.17); Alkaline Phosphatase 57 U/L (41-126); BUN/Creat Ratio 23.33 Ratio (12.00-20.00); Calcium 9.6 mg/dL (8.7-10.3); Carbon Dioxide 23.2 mmol/L (21.6-31.8); Chloride 105 mmol/L (96-109); Chol/HDL Ratio 2.52 Ratio; Globulin 2.6 g/dL (1.6-3.3); Glucose 104 mg/dL (70-110); LDL Cholesterol,Calculated 77.3 mg/dL (0.0-131.0); Potassium 4.2 mmol/L (3.5-5.5); Sodium 140 mmol/L (135-145); Total Bilirubin <0.2 mg/dL (0.3-1.2); Total Protein 7.1 g/dL (6.2-8.2); VLDL Calculation 11.86 mg/dL (5.00-40.00)
== END | disposition home or self-care (01) ==
LOC: LABWHC1 10:05
PROVIDERS: ATTEND Internal Medicine
DX: Z00.01 Encounter for general adult medical examination with abnormal findings (principal); Z13.220 Encounter for screening for lipoid disorders; E55.9 Vitamin D deficiency, unspecified; R73.9 Hyperglycemia, unspecified; R53.82 Chronic fatigue, unspecified
CPT/HCPCS: 36415; 80053; 80061; 82306; 83036; 84443; 85025

== ENCOUNTER → 2024-06-09 | Outpatient (CLI) | payer BC ==
--- NOTE | 2024-06-10 10:08 | MM ---
Reason for Exam: Screening (asymptomatic). Last mammogram was performed 2 year(s) and 1 month(s) ago. Patient History: Menarche at age 17. First Full-Term at age 27. Hormonal Contraceptives, from age 16 until age 36. Maternal cousin had breast cancer under age 50. Risk Values: Trisha 5 year model risk: 0.7%. NCI Lifetime model risk: 10.0%. Prior Study Comparison: 02/06/2019 Bilateral Screening Mammogram, [facility]. 04/24/2022 Bilateral MG 3D screening mammo w/cad, [facility]. Tissue Density: There are scattered areas of fibroglandular density. Findings: Analyzed By CAD. There is no suspicious group of microcalcifications or new suspicious mass in either breast. Overall Assessment: Negative, BI-RAD 1 Management: Screening Mammogram of both breasts in 1 year. . Patient should continue monthly self-breast exams. A clinical breast exam by your physician is recommended on an annual basis. This exam should not preclude additional follow-up of suspicious palpable abnormalities. Note on Trisha scores and lifetime risk: 1. A Trisha score greater than 3% is considered moderate risk. If this is the case, consider specialist referral to assess eligibility for a risk reducing agent. 2. If overall lifetime risk for the development of breast cancer is 20% or higher, the patient may qualify for future screening with alternating mammogram and breast MRI. [facility], , 06/10/2024 10:06 AM. Electronically signed and approved by: Mihir Evans M.D. Radiologis
== END | disposition home or self-care (01) ==
LOC: RADMAMWWP 13:03
PROVIDERS: ATTEND Obstetrics & Gynecology Obstetrics
DX: Z12.31 Encounter for screening mammogram for malignant neoplasm of breast (principal); R92.323 Mammographic fibroglandular density, bilateral breasts; Z80.3 Family history of malignant neoplasm of breast
CPT/HCPCS: 77063; 77067

== ENCOUNTER → 2024-08-06 | Outpatient (CLI) | payer BC ==
[2024-08-06 19:57] LABS: ALT 19 U/L (8-44); AST 19 U/L (13-35); Chol/HDL Ratio 2.95 Ratio; LDL Cholesterol,Calculated 79.9 mg/dL (0.0-131.0); VLDL Calculation 17.96 mg/dL (5.00-40.00)
== END | disposition home or self-care (01) ==
LOC: LABWHC1 12:32
PROVIDERS: ATTEND Internal Medicine Interventional Cardiology
DX: E78.2 Mixed hyperlipidemia (principal)
CPT/HCPCS: 36415; 80061; 84450; 84460

== ENCOUNTER → 2024-12-02 | Outpatient (CLI) | payer BC ==
[2024-12-02 14:57] LABS: Basophils # (A) 0.04 X 10*3/uL (0.00-0.10); Basophils % (A) 0.6 %; Eosinophils # (A) 0.11 X 10*3/uL (0.04-0.35); Eosinophils % (A) 1.6 %; HCT 43.1 % (37.2-46.3); HGB 14.2 g/dL (12.0-15.0); Lymphocytes # (A) 2.36 X 10*3/uL (0.90-5.00); Lymphocytes % (A) 34.8 %; MCH 30.7 pg (27.0-32.0); MCHC 32.9 g/dL (32.0-37.0); MCV 93.3 FL (80.0-97.0); Mean Platelet Volume 11.4 FL (9.5-12.2); Monocytes # (A) 0.59 X 10*3/uL (0.20-1.00); Monocytes % (A) 8.7 %; NRBC Per 100 WBC 0 X 10*3/uL (0.00-0.01); Neutrophils # (A) 3.66 X 10*3/uL (1.80-7.70); Platelet Count 220 X 10*3/uL (140-440); RBC 4.62 X 10*6/uL (4.10-5.20); WBC 6.78 X 10*3/uL (4.50-10.00)
[2024-12-02 15:46] LABS: Chol/HDL Ratio 2.45 Ratio
[2024-12-02 15:47] LABS: ALT 16 U/L (8-44); AST 19 U/L (13-35); Albumin 4.3 g/dL (3.8-4.9); Albumin/Globulin Ratio 1.59 Ratio (1.60-3.17); Alkaline Phosphatase 58 U/L (41-126); Blood Urea Nitrogen 14.5 mg/dL (9.0-27.0); Carbon Dioxide 23.5 mmol/L (21.6-31.8); Chloride 105 mmol/L (96-109); Globulin 2.7 g/dL (1.6-3.3); Glucose 91 mg/dL (70-110); Potassium 4.2 mmol/L (3.5-5.5); Sodium 139 mmol/L (135-145); Total Bilirubin 0.4 mg/dL (0.3-1.2)
[2024-12-02 16:37] LABS: Gliadin AB IgA, Deaminated Negative (Negative); Gliadin AB IgA, Unit 3.4 U/mL; Gliadin AB IgG, Deaminated Negative (Negative); Gliadin AB IgG, Unit 0.5 U/mL
== END | disposition home or self-care (01) ==
LOC: LABWHC1 10:16
PROVIDERS: ATTEND Internal Medicine
DX: Z13.220 Encounter for screening for lipoid disorders (principal); I10 Essential (primary) hypertension; E04.1 Nontoxic single thyroid nodule; E55.9 Vitamin D deficiency, unspecified; K90.0 Celiac disease; R73.9 Hyperglycemia, unspecified
CPT/HCPCS: 36415; 80053; 80061; 82306; 83036; 83516; 84443; 85025

== ENCOUNTER → 2024-12-30 | Outpatient (CLI) | payer OTHER ==
--- NOTE | 2024-12-30 15:57 | XR ---
EXAMINATION TYPE: XR finger RT DATE OF EXAM: 12/30/2024 3:44 PM COMPARISON: None CLINICAL INDICATION: Female, 44 years old with history of S67.190A; PHH, pain TECHNIQUE: XR finger RT 3 views were obtained. FINDINGS: Soft tissue swelling of the second digit. Normal alignment of the visualized joints. No ac [place] osseous pathology is identified. No evidence of soft tissue swelling. No significant degeneratio n IMPRESSION: Soft tissue swelling of the second digit without evidence of fracture. [facility], , 12/30/2024 3:54 PM
== END | disposition home or self-care (01) ==
LOC: RADXRMAIN 15:32
PROVIDERS: ATTEND Emergency Medicine
DX: S67.190A Crushing injury of right index finger, initial encounter (principal); X58.XXXA Exposure to other specified factors, initial encounter

== ENCOUNTER → 2025-01-05 | Outpatient (CLI) | payer OTHER ==
--- NOTE | 2025-01-05 12:45 | XR ---
EXAMINATION TYPE: XR finger RT DATE OF EXAM: 01/05/2025 12:30 PM COMPARISON: None CLINICAL INDICATION: Female, 44 years old with history of S67.190A CRUSHING INJURY OF RIGHT INDEX [place]; PHH, pain TECHNIQUE: XR finger RT 3 views were obtained. FINDINGS: Normal alignment of the visualized joints. No acute osseous pathology is identified. Mild of soft tissue swelling present. No significant degeneration. IMPRESSION: Soft tissue swelling without acute osseous pathology. [facility], , 01/05/2025 12:43 PM
== END | disposition home or self-care (01) ==
LOC: RADXRMAIN 12:15
PROVIDERS: ATTEND Emergency Medicine
DX: S67.190A Crushing injury of right index finger, initial encounter (principal); M79.89 Other specified soft tissue disorders; X58.XXXA Exposure to other specified factors, initial encounter